=== PATIENT | male | born 1960 | race Caucasian/White ===

== ENCOUNTER 2020-03-28 18:14 | Inpatient (IN) | payer OTHER ==
[~2020-03-28] VITALS: Ht 180.3 cm; Wt 77.6 kg
[2020-03-28 18:21] VITALS: Ht 180.3 cm; Wt 77.6 kg
[2020-03-28 19:16] LABS: BASOPHIL % 0.9 % (0.2-1.5); PLATELET COUNT 296 x10^3mcL (152-348)
[2020-03-28 19:18] LABS: RED CELL DISTRIBUTION WIDTH 15.3 % (12.1-16.2)
[2020-03-28 19:36] LABS: UA SPECIFIC GRAVITY >=1.030 (1.005-1.035); microscopic required? YES; urine erythrocyte NEGATIVE (NEGATIVE)
[2020-03-28 20:14] LABS: AMPHETAMINE QUAL UR POSITIVE (See below)
[2020-03-28 20:39] LABS: CALCIUM 8.7 mg/dL (8.5-10.1); CARBON DIOXIDE 22.4 mmol/L (21-32); CHLORIDE SERUM 103 mmol/L (98-107); CREATININE SERUM 1.9 mg/dL (0.7-1.3); GFR1 39 mL/min; GLUCOSE SERUM 77 mg/dL (74-106); POTASSIUM SERUM 4.9 mmol/L (3.5-5.1); SODIUM SERUM 138 mmol/L (136-145)
[2020-03-28 21:06] LABS: ALBUMIN 3.5 g/dL (3.4-5.0); ALKALINE PHOSPHATASE 186 U/L (46-116); ALT/SGPT 139 U/L (16-63); AST/SGOT 137 U/L (15-37); BILIRUBIN TOTAL 1.6 mg/dL (0.20-1.00); C REACTIVE PROTEIN 4.7 mg/dL (<=0.9); LACTIC DEHYDROGENASE (LDH) 397 U/L (100-190); LIPASE 73 IU/L (73-393); MAGNESIUM 1.9 mg/dL (1.8-2.4); T4(THYROXINE) 6.2 ug/dL (4.7-13.3); TOTAL PROTEIN, SERUM 7.1 g/dL (6.4-8.2)
[2020-03-28 21:08] LABS: CHOLESTEROL 80 mg/dL (<200); HDL CHOLESTEROL 29 mg/dL (40-60)
[2020-03-28 23:52] VITALS: BP 136/85
[2020-03-29] VITALS (9 sets, daily range): BP systolic 103–144; BP diastolic 65–98
[2020-03-29 09:19] LABS: ALBUMIN 3.4 g/dL (3.4-5.0); BILIRUBIN TOTAL 2.59 mg/dL (0.20-1.00); CALCIUM 9.2 mg/dL (8.5-10.1); CARBON DIOXIDE 20.5 mmol/L (21-32); CREATININE SERUM 1.9 mg/dL (0.7-1.3); MAGNESIUM 1.8 mg/dL (1.8-2.4); PHOSPHOROUS 5.4 mg/dL (2.5-4.9); POTASSIUM SERUM 4.4 mmol/L (3.5-5.1); TOTAL PROTEIN, SERUM 6.6 g/dL (6.4-8.2)
[2020-03-29 09:26] LABS: CHOLESTEROL/HDL RATIO 2.8
[2020-03-29 12:49] LABS: BASOPHIL % 0.3 % (0.2-1.5); PLATELET COUNT 235 x10^3mcL (152-348)
[2020-03-29 12:54] LABS: RED CELL DISTRIBUTION WIDTH 14.8 % (12.1-16.2)
[2020-03-30 05:40] VITALS: BP 147/89
[2020-03-30 07:23] VITALS: BP 128/86
[2020-03-30 07:36] LABS: BASOPHIL % 1.4 % (0.2-1.5); PLATELET COUNT 243 x10^3mcL (152-348)
[2020-03-30 07:37] LABS: RED CELL DISTRIBUTION WIDTH 15.3 % (12.1-16.2)
[2020-03-30 08:50] LABS: BILIRUBIN TOTAL 1.85 mg/dL (0.20-1.00); CALCIUM 9.1 mg/dL (8.5-10.1); CARBON DIOXIDE 24.3 mmol/L (21-32); CREATININE SERUM 1.6 mg/dL (0.7-1.3); MAGNESIUM 1.9 mg/dL (1.8-2.4); PHOSPHOROUS 4.2 mg/dL (2.5-4.9); POTASSIUM SERUM 4.8 mmol/L (3.5-5.1); TOTAL PROTEIN, SERUM 6.4 g/dL (6.4-8.2)
[2020-03-30 09:24] LABS: ALBUMIN 3.1 g/dL (3.4-5.0)
[2020-03-30 12:03] VITALS: BP 125/82
[2020-03-30 17:04] VITALS: BP 122/79
[2020-03-30 19:57] VITALS: BP 116/78
[2020-03-31 01:37] VITALS: BP 118/72
[2020-03-31 07:20] LABS: BASOPHIL % 0.6 % (0.2-1.5); PLATELET COUNT 215 x10^3mcL (152-348)
[2020-03-31 07:44] VITALS: BP 105/72
[2020-03-31 07:53] LABS: ALKALINE PHOSPHATASE 146 U/L (46-116); ALT/SGPT 327 U/L (16-63); AMYLASE 44 U/L (25-115); AST/SGOT 215 U/L (15-37); BILIRUBIN TOTAL 0.98 mg/dL (0.20-1.00); CARBON DIOXIDE 31.4 mmol/L (21-32); CHLORIDE SERUM 108 mmol/L (98-107); CREATININE SERUM 1.3 mg/dL (0.7-1.3); GFR1 > 60 mL/min; GLUCOSE SERUM 95 mg/dL (74-106); LIPASE 90 IU/L (73-393); MAGNESIUM 1.9 mg/dL (1.8-2.4); PHOSPHOROUS 2.9 mg/dL (2.5-4.9); POTASSIUM SERUM 4.4 mmol/L (3.5-5.1); SODIUM SERUM 141 mmol/L (136-145)
[2020-03-31 08:08] LABS: ALBUMIN 2.8 g/dL (3.4-5.0); TOTAL PROTEIN, SERUM 5.8 g/dL (6.4-8.2)
[2020-03-31 11:33] VITALS: BP 110/32
[2020-03-31 15:59] VITALS: BP 103/70
[2020-03-31 18:21] VITALS: BP 110/85
[2020-03-31 21:30] VITALS: BP 137/76
[2020-04-01 05:35] VITALS: BP 135/77
[2020-04-01 06:48] LABS: BASOPHIL % 1.1 % (0.2-1.5); PLATELET COUNT 211 x10^3mcL (152-348)
[2020-04-01 07:10] LABS: ALKALINE PHOSPHATASE 133 U/L (46-116); ALT/SGPT 261 U/L (16-63); AMYLASE 43 U/L (25-115); AST/SGOT 129 U/L (15-37); BILIRUBIN TOTAL 1.08 mg/dL (0.20-1.00); CALCIUM 9.2 mg/dL (8.5-10.1); CARBON DIOXIDE 30.3 mmol/L (21-32); CHLORIDE SERUM 108 mmol/L (98-107); CREATININE SERUM 1.2 mg/dL (0.7-1.3); GFR1 > 60 mL/min; GLUCOSE SERUM 104 mg/dL (74-106); LIPASE 83 IU/L (73-393); MAGNESIUM 1.8 mg/dL (1.8-2.4); PHOSPHOROUS 3.2 mg/dL (2.5-4.9); POTASSIUM SERUM 4.5 mmol/L (3.5-5.1); SODIUM SERUM 140 mmol/L (136-145)
[2020-04-01 07:13] LABS: ALBUMIN 2.9 g/dL (3.4-5.0)
[2020-04-01 07:26] LABS: RED CELL DISTRIBUTION WIDTH 15.1 % (12.1-16.2)
[2020-04-01 08:20] VITALS: BP 110/74
[2020-04-01 11:57] VITALS: BP 103/71
[2020-04-01 17:09] VITALS: BP 102/74
[2020-04-01 20:05] VITALS: BP 119/79
[2020-04-01 21:00] VITALS: BP 114/85
[2020-04-02] VITALS (7 sets, daily range): BP systolic 96–133; BP diastolic 67–77
[2020-04-02 06:29] LABS: BASOPHIL % 0.7 % (0.2-1.5); PLATELET COUNT 182 x10^3mcL (152-348)
[2020-04-02 06:40] LABS: ALKALINE PHOSPHATASE 130 U/L (46-116); ALT/SGPT 215 U/L (16-63); AMYLASE 44 U/L (25-115); AST/SGOT 112 U/L (15-37); CALCIUM 8.9 mg/dL (8.5-10.1); CARBON DIOXIDE 28.2 mmol/L (21-32); CHLORIDE SERUM 107 mmol/L (98-107); CREATININE SERUM 1.2 mg/dL (0.7-1.3); GFR1 > 60 mL/min; GLUCOSE SERUM 125 mg/dL (74-106); LIPASE 84 IU/L (73-393); MAGNESIUM 1.6 mg/dL (1.8-2.4); PHOSPHOROUS 3.2 mg/dL (2.5-4.9); POTASSIUM SERUM 4.6 mmol/L (3.5-5.1); SODIUM SERUM 139 mmol/L (136-145)
[2020-04-02 06:48] LABS: ALBUMIN 2.8 g/dL (3.4-5.0); RED CELL DISTRIBUTION WIDTH 14.8 % (12.1-16.2)
[2020-04-03] VITALS (7 sets, daily range): BP systolic 90–123; BP diastolic 53–76
[2020-04-04 05:42] VITALS: BP 137/64
[2020-04-04 08:12] VITALS: BP 101/76
[2020-04-04 12:31] VITALS: BP 96/65
[2020-04-04 16:12] VITALS: BP 102/66
[2020-04-04 21:01] VITALS: BP 104/69
[2020-04-05 04:59] VITALS: BP 115/80
[2020-04-05 07:11] VITALS: BP 121/81
[2020-04-05 11:05] VITALS: BP 118/82
[2020-04-05 17:57] VITALS: BP 99/70
[2020-04-05 18:25] LABS: POTASSIUM SERUM 5.5 mmol/L (3.5-5.1)
[2020-04-05 18:26] LABS: ALBUMIN 3.4 g/dL (3.4-5.0); BILIRUBIN TOTAL 1.2 mg/dL (0.20-1.00); CALCIUM 9.4 mg/dL (8.5-10.1); CARBON DIOXIDE 26.5 mmol/L (21-32); CREATININE SERUM 1.8 mg/dL (0.7-1.3); TOTAL PROTEIN, SERUM 7.1 g/dL (6.4-8.2)
[2020-04-05 23:30] VITALS: BP 84/50
[2020-04-06 11:33] VITALS: BP 90/56
[2020-04-06 13:38] LABS: RED CELL DISTRIBUTION WIDTH 15.1 % (11.5-14.5)
[2020-04-06 13:39] LABS: BASOPHIL % 0.9 % (0-2); PLATELET COUNT 195 x10^3mcL (130-400)
[2020-04-06 17:30] VITALS: BP 99/70
[2020-04-06 21:55] VITALS: BP 106/71
[2020-04-07 06:35] VITALS: BP 112/63
[2020-04-07 07:28] LABS: BASOPHIL % 1.1 % (0.2-1.5); PLATELET COUNT 186 x10^3mcL (152-348)
[2020-04-07 07:40] LABS: RED CELL DISTRIBUTION WIDTH 14.8 % (12.1-16.2)
[2020-04-07 08:15] LABS: ALKALINE PHOSPHATASE 137 U/L (46-116); ALT/SGPT 87 U/L (16-63); AST/SGOT 40 U/L (15-37); BILIRUBIN TOTAL 0.5 mg/dL (0.20-1.00); CALCIUM 9.3 mg/dL (8.5-10.1); CARBON DIOXIDE 25.6 mmol/L (21-32); CHLORIDE SERUM 98 mmol/L (98-107); CREATININE SERUM 1.3 mg/dL (0.7-1.3); GFR1 > 60 mL/min; GLUCOSE SERUM 96 mg/dL (74-106); POTASSIUM SERUM 5.1 mmol/L (3.5-5.1); SODIUM SERUM 133 mmol/L (136-145); TOTAL PROTEIN, SERUM 6.9 g/dL (6.4-8.2)
[2020-04-07 08:37] VITALS: BP 107/66
[2020-04-07 12:01] VITALS: BP 91/61
[2020-04-07 16:02] VITALS: BP 99/70
[2020-04-07 22:56] VITALS: BP 123/81
[2020-04-08 05:53] VITALS: BP 103/59
[2020-04-08 07:58] VITALS: BP 101/66
[2020-04-08 08:45] LABS: BASOPHIL % 0.8 % (0.2-1.5); PLATELET COUNT 222 x10^3mcL (152-348)
[2020-04-08 09:06] LABS: RED CELL DISTRIBUTION WIDTH 15.2 % (12.1-16.2)
[2020-04-08 09:54] LABS: ALKALINE PHOSPHATASE 121 U/L (46-116); ALT/SGPT 68 U/L (16-63); AST/SGOT 29 U/L (15-37); BILIRUBIN TOTAL 0.5 mg/dL (0.20-1.00); CALCIUM 9.2 mg/dL (8.5-10.1); CARBON DIOXIDE 27.4 mmol/L (21-32); CHLORIDE SERUM 102 mmol/L (98-107); CREATININE SERUM 1.3 mg/dL (0.7-1.3); GFR1 > 60 mL/min; GLUCOSE SERUM 155 mg/dL (74-106); POTASSIUM SERUM 4.5 mmol/L (3.5-5.1); SODIUM SERUM 138 mmol/L (136-145); TOTAL PROTEIN, SERUM 6.5 g/dL (6.4-8.2)
[2020-04-08 09:55] LABS: ALBUMIN 2.9 g/dL (3.4-5.0)
[2020-04-08 12:01] VITALS: BP 93/64
[2020-04-08 15:45] VITALS: BP 120/67
[2020-04-08 20:33] VITALS: BP 97/51
[2020-04-09 06:14] VITALS: BP 106/73
[2020-04-09 08:21] VITALS: BP 104/73
[2020-04-09 12:02] VITALS: BP 99/66
[2020-04-09 20:31] VITALS: BP 104/63
[2020-04-10 05:22] VITALS: BP 100/53
[2020-04-10 08:18] VITALS: BP 106/78
[2020-04-10 13:00] VITALS: BP 112/78
[2020-04-11 05:28] VITALS: BP 99/57
[2020-04-11 08:00] VITALS: BP 105/74
[2020-04-11 17:18] VITALS: BP 113/78
[2020-04-11 19:40] VITALS: BP 113/76
[2020-04-12 10:22] VITALS: BP 107/68
[2020-04-12 21:06] VITALS: BP 109/67
[2020-04-13 08:19] VITALS: BP 110/76
[2020-04-13 13:01] VITALS: BP 117/79
[2020-04-13 16:32] VITALS: BP 95/58
[2020-04-13 19:35] VITALS: BP 117/83
[2020-04-14 06:00] VITALS: BP 127/77
[2020-04-14 08:25] VITALS: BP 102/61
[2020-04-14 12:06] VITALS: BP 102/66
[2020-04-14 15:47] VITALS: BP 110/61
[2020-04-14] MEDS ORDERED: TRA50 PO (15:49)
[2020-04-14] MEDS ORDERED: TYL325 PO (15:49)
[2020-04-14] MEDS ORDERED: HAL5 PO (15:50)
[2020-04-14] MEDS ORDERED: L40 PO (15:51)
[2020-04-14] MEDS ORDERED: LAC30L PO (15:51)
[2020-04-14] MEDS ORDERED: MAG PO (15:51)
[2020-04-14] MEDS ORDERED: BAY PO (15:52)
[2020-04-14] MEDS ORDERED: THI100 PO (15:52)
[2020-04-14] MEDS ORDERED: FOL1 PO (15:52)
[2020-04-14] MEDS ORDERED: COR3 PO (15:53)
[2020-04-14] MEDS ORDERED: LORAZEPAM0.5 MG PO (15:53)
[2020-04-14 20:30] VITALS: BP 100/73
[2020-04-15 08:10] VITALS: BP 118/81
[2020-04-15 12:50] VITALS: BP 118/81
== END 2020-04-15 14:47 | DRG 190 ==
LOC: ED 18:14 → DU 22:07 → MU 04-12 18:48
PROVIDERS: Emergency Medicine; Internal Medicine; ADMIT Hospitalist; ATTEND Hospitalist
PROC: 0HQ0XZZ Repair Scalp Skin, External Approach (ICD-10-PCS; principal; 2020-04-04)
DX: I21.4 Non-ST elevation (NSTEMI) myocardial infarction (principal); G93.41 Metabolic encephalopathy; I50.43 Acute on chronic combined systolic (congestive) and diastolic (congestive) heart failure; J18.9 Pneumonia, unspecified organism; N17.9 Acute kidney failure, unspecified; J96.91 Respiratory failure, unspecified with hypoxia; J96.92 Respiratory failure, unspecified with hypercapnia; I42.0 Dilated cardiomyopathy; I11.0 Hypertensive heart disease with heart failure; R65.10 Systemic inflammatory response syndrome (SIRS) of non-infectious origin without acute organ dysfunction; M62.82 Rhabdomyolysis; K72.90 Hepatic failure, unspecified without coma; M84.48XA Pathological fracture, other site, initial encounter for fracture; Z86.74 Personal history of sudden cardiac arrest; S02.2XXA Fracture of nasal bones, initial encounter for closed fracture; D72.829 Elevated white blood cell count, unspecified; S80.01XA Contusion of right knee, initial encounter; I45.10 Unspecified right bundle-branch block; I87.8 Other specified disorders of veins; G43.909 Migraine, unspecified, not intractable, without status migrainosus; E78.00 Pure hypercholesterolemia, unspecified; E78.5 Hyperlipidemia, unspecified; W18.39XA Other fall on same level, initial encounter; F29 Unspecified psychosis not due to a substance or known physiological condition; Z20.822 Contact with and (suspected) exposure to COVID-19; S80.02XA Contusion of left knee, initial encounter; Z95.0 Presence of cardiac pacemaker; Z88.1 Allergy status to other antibiotic agents; Z79.899 Other long term (current) drug therapy; Z79.891 Long term (current) use of opiate analgesic; Z79.01 Long term (current) use of anticoagulants; Z79.82 Long term (current) use of aspirin; Y93.89 Activity, other specified; Y92.89 Other specified places as the place of occurrence of the external cause; Y99.8 Other external cause status
CPT/HCPCS: 36600; 83880; 85378; 87804; G0378; G0480; J1200; J1630; J1644; J1940; J1956; J2001; J2060; J2310; J2405; J3475; J3490; J7030; J7050; J7060; J8597; Q0163; U0003